=== PATIENT | female | born 1990 | race Caucasian/White ===

== ENCOUNTER 2020-02-11 01:43 | Inpatient (IN) | payer OTHER ==
[2020-02-11] VITALS (20 sets, daily range): BP systolic 90–125; BP diastolic 52–86; PULSE 65–130; TEMP 97.7–99.2
[~2020-02-11] VITALS: Ht 157.5 cm; Wt 69.5 kg
--- NOTE | 2020-02-11 01:45 | NUR ---
G1 at 39 weeks and 5 days arrives to unit with complaint of contractions every 5 minutes. Pt denies LOF or vaginal bleeding. Reports good movement. Pt states she has been isabel since 1400 and was checked in the office around 1600 and was dilated 1-2. Fetus has been in gómez breech position and pt feels is still breech. Clean gown on. Pt oriented to room, bed in low and locked position, call light within reach. US and toco explained and applied. Vital signs obtained. Admission assessment started. SVE 490/-3, membranes intact, unable to feel presenting part. Dr. An on unit and notified.
--- NOTE | 2020-02-11 02:00 | NUR ---
18 G IV started in right forearm. Admission labs obtained off IV start. Lactated Ringers infusing to gravity. Consents reviewed and signed with patient and spouse. All questions answered.
--- NOTE | 2020-02-11 02:15 | NUR ---
Dr. An at bedside with US. Breech position confirmed. Dr. Maya en route to hospital.
[2020-02-11 02:25] LABS: BASO % 0.3 % (0.0-2.0); EOS # 0.1 (0.0-0.7); EOS % 0.6 % (0-4.0); GRAN # 8.4 (1.4-6.5); GRAN % 75.6 % (42.2-75.2); HEMATOCRIT 38.5 % (37.0-47.0); HEMOGLOBIN 12.8 g/dl (12.5-16.0); LYMPH # 1.8 (1.2-3.4); LYMPH % 16.4 % (20.0-51.0); MEAN CELL VOLUME 87 fl (80.0-100.0); MEAN CORPUSCULAR HEMOGLOBIN 29 pg (27.0-31.0); MEAN CORPUSCULAR HGB CONC 33 g/dl (33.0-37.0); MEAN PLATELET VOLUME 9.5 fl (7.4-10.4); MONO # 0.7 (0.1-0.6); MONO % 6.6 % (1.7-9.3); PLATELET COUNT 218 K/mm3 (130-400); RED BLOOD COUNT 4.45 M/mm3 (4.10-5.30); REDCELL DISTRIBUTION WIDTH-CV 12.1 % (11.5-14.5)
--- NOTE | 2020-02-11 02:30 | NUR ---
Start of procedure delayed due to delivery of other patients and availability of OR and staff.
[2020-02-11] MEDS ORDERED: PRENATAL (02:38)
--- NOTE | 2020-02-11 02:55 | NUR ---
Category 1 FHR tracing. Monitors removed. Pt up to bathroom to void. Dr. Maya on unit. Waiting on another delivery before proceeding with section.
--- NOTE | 2020-02-11 03:15 | NUR ---
Incision site clipped. Hibiclens wash to incision site. Monitors off. Pt and spouse ambulating to OR.
--- NOTE | 2020-02-11 09:57 | NUR ---
Initial visit; Parents thanked for offering congratulations for the of their son. thanked family for choosing [facility].
[2020-02-12 01:10] VITALS: BP 114/51; PULSE 72; TEMP 98
[2020-02-12 04:20] VITALS: BP 103/62; PULSE 67; TEMP 98.2
[2020-02-12 07:40] VITALS: BP 112/65; PULSE 78; TEMP 98.3
[2020-02-12 15:45] VITALS: BP 120/66; PULSE 77; TEMP 98
[2020-02-12 19:30] VITALS: BP 120/64; PULSE 76; TEMP 98.9
[2020-02-13 07:30] VITALS: BP 114/61; PULSE 71; TEMP 98.8
[2020-02-13] MEDS ORDERED: MOTRIN 800800 MG/TAB PO (08:40)
[2020-02-13] MEDS ORDERED: PERCOCET 325 MG1 TA2 PO (08:40)
--- NOTE | 2020-02-13 12:50 | NUR ---
1200 DISCHARGE INSTRUCTIONS REVIEWED WITH PATIENT. PATIENT VERBALIZED UNDERSTANDING. ALL QUESTIONS ANSWERED. 1220 ALL PERSONAL BELONGINGS GATHERED FROM PATIENT ROOM. PATIENT LEFT AMBULATORY AND IN NO APPARENT DISTRESS. PATIENT ACCOMPANIED BY SPOUSE AND THIS RN.
== END 2020-02-13 12:20 | disposition home or self-care (01) | DRG 788 ==
LOC: LDRO 01:43 → LDR 02:07 → OB 02:07
PROVIDERS: ADMIT Obstetrics & Gynecology
PROC: 10D00Z1 Extraction of Products of Conception, Low, Open Approach (ICD-10-PCS; principal; 2020-02-11)
DX: O32.1XX0 Maternal care for breech presentation, not applicable or unspecified (principal); Z37.0 Single live birth; O36.5930 Maternal care for other known or suspected poor fetal growth, third trimester, not applicable or unspecified; Z3A.39 39 weeks gestation of pregnancy
CPT/HCPCS: J0690; J1885; J2370; J2405; J2590; J2791; J7120

== ENCOUNTER 2022-12-05 09:23 | Outpatient (CLI) | payer OTHER ==
[~2022-12-05] VITALS: Ht 160 cm; Wt 67.3 kg
[~2022-12-05 09:23] MED LIST: MOTRIN 800800 MG/TAB PO; PERCOCET 325 MG1 TA2 PO; PRENATAL
--- NOTE | 2022-12-05 09:30 | NUR ---
Pt arrived on unit ambulatory and with concerns for decreased movement. Pt reports she had not felt the baby move since last night but then was able to feel her move while checking in at the hospital. Pt reports occasional contractions, denies any leaking of fluid or vaginal bleeding. EFM and toco monitors started. Vital signs WNL. Dr. Maya at the bedside. FHR tracing reviewed. Plan of care for FHR monitoring reviewed with pt and family at the bedside.
[2022-12-05 10:13] VITALS: BP 123/73; PULSE 77; TEMP 97.9
--- NOTE | 2022-12-05 10:13 | NUR ---
Discharge instructions and labor precautions reviewed with pt. Pt requested SVE prior to discharge. SVE done by this RN 2-/-2.
[2022-12-11] MEDS ORDERED: MOTRIN 600600 MG/TAB PO (07:36)
[2022-12-11] MEDS ORDERED: ROXICODONE 55 MG/TAB PO (07:37)
== END 2022-12-05 10:30 | disposition home or self-care (01) ==
LOC: LDRO 09:23
DX: O36.8130 Decreased fetal movements, third trimester, not applicable or unspecified (principal); Z3A.40 40 weeks gestation of pregnancy

== ENCOUNTER 2022-12-09 09:35 | Outpatient (CLI) | payer OTHER ==
[~2022-12-09] VITALS: Ht 160 cm; Wt 67.3 kg
--- NOTE | 2022-12-09 09:40 | NUR ---
PT ON UNIT, CHANGED INTO CLEAN GOWN. PT REPORTS CTX Q5-8 MINUTES. NO LOF, NO BLEEDING, POSITIVE FM. PT WISHES TO BUT IS SCHEDULED FOR REPEAT C/S SUNDAY. SVE AT THIS TIME . EFM TRACING CAT 1. PT TOLERATING WELL. BREATHING THROUGH CTX.
[2022-12-09 09:45] VITALS: BP 111/64; PULSE 93; TEMP 97.9
[2022-12-09 10:15] VITALS: BP 111/64; PULSE 93
--- NOTE | 2022-12-09 10:50 | NUR ---
SVE AT THIS TIME /-2.
--- NOTE | 2022-12-09 10:55 | NUR ---
THIS RN IN ROOM TO INFORM PT THAT DR. ADRIAN SUGGESTS SHE DISCHARGES HOME AND CONTINUES EARLY LABOR THERE. THIS RN TOLD PT TO COME BACK IF SHE FEELS PAIN, INCREASE IN FREQUENCY OF CTX, LOF, DECREASED FM, BLEEDING, OR ANY OTHER CONCERNS. PT AGREES.
[2022-12-11] MEDS ORDERED: MOTRIN 600600 MG/TAB PO (07:36)
[2022-12-11] MEDS ORDERED: ROXICODONE 55 MG/TAB PO (07:37)
== END 2022-12-09 11:00 | disposition home or self-care (01) ==
LOC: LDRO 09:35
DX: O62.4 Hypertonic, incoordinate, and prolonged uterine contractions (principal); Z3A.40 40 weeks gestation of pregnancy